=== PATIENT | female | born 1950 | race African-American/Black ===

== ENCOUNTER 2022-01-31 05:14 | Emergency (ER) | payer OTHER ==
--- NOTE | 2022-01-31 05:44 | ER ---
Nurse's Notes [facility] Name: Stephen Carter Age: 71 yrs Sex: Female : 1950 Arrival Date: 01/31/2022 Time: 05:17 Bed 8 Private MD: Diagnosis: Radiculopathy, lumbosacral region Presentation: 01/31 05:34 Chief complaint: Patient states: LOWER BACK PAIN RADIATING TO BILATERAL LOWER kl EXTREMITIES X 1 MONTH. Coronavirus screen: Vaccine status: Patient reports receiving the 2nd dose of the covid vaccine. Ebola Screen: Patient negative for fever greater than or equal to 101.5 degrees Fahrenheit, and additional compatible Ebola Virus Disease symptoms. Initial Sepsis Screen: Does the patient meet any 2 criteria? No. Patient's initial sepsis screen is negative. Does the patient have a suspected source of infection? No. Patient's initial sepsis screen is negative. Risk Assessment: Do you want to hurt yourself or someone else? Patient reports no desire to harm self or others. 05:34 Method Of Arrival: Ambulatory 05:34 Acuity: [place] 3 kl 05:40 Onset of symptoms was December 2021. kd3 Triage Assessment: 05:37 General: Appears in no apparent distress. well groomed, well developed, Behavior is kl calm, cooperative. Pain: Complains of pain in lumbar area Pain radiates to BILATERAL LOWER LEG. EENT: No deficits noted. Neuro: No deficits noted. Cardiovascular: No deficits noted. Respiratory: No deficits noted. GI: No deficits noted. No signs and/or symptoms were reported involving the gastrointestinal system. : No deficits noted. No signs and/or symptoms were reported regarding the genitourinary system. Derm: No deficits noted. No signs and/or symptoms reported regarding the dermatologic system. Musculoskeletal: Reports. Historical: - Allergies: 05:36 No Known Allergies; kl - Home Meds: 05:36 gabapentin oral [Active]; Januvia oral [Active]; Nifedipine Oral [Active]; kl - PMHx: 05:36 Hypertensive disorder; Diabetes mellitus; NEUROPATHY; kl - PSHx: 05:36 None; kl - Immunization history:: Adult Immunizations up to date. - Social history:: Smoking status: Patient denies any tobacco usage or history of. - Family history:: not pertinent. - Hospitalizations: : No recent hospitalization is reported. Screenin:38 [facility] ED Fall Risk Assessment (Adult) History of falling in the last 3 months, kd3 including since admission No falls in past 3 months (0 pts) Confusion or Disorientation No (0 pts) Intoxicated or Sedated No (0 pts) Impaired Gait No (0 pts) Mobility Assist Device Used No (0 pt) Altered Elimination No (0 pt) Score/Fall Risk Level 0 - 2 = Low Risk. Humpty Dumpty Scale Fall Assessment Tool (age< 18yrs) Age 13 years and above (1 pt) Gender Female (1 pt) Diagnosis Other diagnosis (1 pt) Cognitive Impairments Oriented to own ability (1 pt) Environmental Factors Patient placed in bed (2 pts) Response to Surgery/Sedation/Anesthesia More than 48 hours/None (1 pt) Medication Usage Other medications/ None (1 pt) Fall Risk Score/ Level Low Fall Risk: < 11 points. Abuse screen: Denies threats or abuse. Denies injuries from another. Nutritional screening: No deficits noted. Tuberculosis screening: No symptoms or risk factors identified. Fall Risk No fall in past 12 months (0 pts). No secondary diagnosis (0 pts). No IV (0 pts). Ambulatory Aid- None/Bed Rest/Nurse Assist (0 pts). Gait- Normal/Bed Rest/Wheelchair (0 pts) Mental Status- Oriented to own ability (0 pts). Total Leon Fall Scale indicates No Risk (0-24 pts). Assessment: 05:37 General: Appears in no apparent distress. Behavior is calm, cooperative. Pain: kd3 Complains of pain in right hamstring and posterior aspect of right knee Pain radiates to left hamstring and posterior aspect of left knee Quality of pain is described as sharp. Neuro: Level of Consciousness is awake, alert, obeys commands, Oriented to person, place, time, situation. Cardiovascular: Patient's skin is warm and dry. Respiratory: Airway is patent Trachea midline Respiratory effort is even, unlabored, Respiratory pattern is regular, symmetrical. GI: No deficits noted. : No deficits noted. Musculoskeletal: Circulation, motion, and sensation intact. Vital Signs: 05:34 BP 143 / 77; Pulse 83; Resp 16; Temp 98.1(TE); Pulse Ox 98% on R/A; Weight 94.8 kg (R); kl Height 5 ft. 3 in. (160.02 cm); Pain 6/10; 05:34 Body Mass Index 37.02 (94.80 kg, 160.02 cm) ED Course: 05:17 Patient arrived in ED. bp1 05:21 Malachi Roblero MD is Attending Physician. rn 05:29 Ivett Pino, RN is Primary Nurse. kd3 05:36 Triage completed. 05:38 Patient has correct armband on for positive identification. Bed in low position. Call kd3 light in reach. 05:38 No provider procedures requiring assistance completed. Patient did not have IV access kd3 during this emergency room visit. 05:40 Arm band placed on. kd3 Administered Medications: No medications were administered Medication: 05:38 VIS not applicable for this client. kd3 Outcome: 05:44 Discharge ordered by . rn 05:51 Discharged to home ambulatory. kd3 05:51 Condition: stable 05:51 Discharge instructions given to patient, Instructed on discharge instructions, follow up and referral plans. medication usage, Demonstrated understanding of instructions, follow-up care, medications, Prescriptions given X 3. 05:51 Patient left the ED. kd3 Signatures: Gala Velazquez RN RN Malachi Roblero MD MD rn [place], [facility] Ivett Pino, GILES SKAGGS kd3 Corrections: (The following items were deleted from the chart) 05:37 05:36 PSHx: [facility]; [facility]
--- NOTE | 2022-01-31 05:44 | EDPHYS ---
Physician Documentation [facility] Name: Stephen Carter Age: 71 yrs Sex: Female : 1950 Arrival Date: 01/31/2022 Time: 05:17 Bed 8 Private MD: ED Physician Malachi Roblero HPI: 01/31 05:37 This 71 yrs old Black Female presents to ER via Ambulatory with complaints of back rn pain, leg pain. 05:37 The patient presents with pain that is chronic, with no known mechanism of injury. The rn symptoms are located in the low back. Onset: The symptoms/episode began/occurred 2 month(s) ago. The pain radiates to the right leg and left leg. Associated signs and symptoms: Pertinent negatives: abdominal pain, chest pain, constipation, dysuria, fever, hematuria, incontinence, nausea, urinary retention, vomiting, weakness. Modifying factors: The patient symptoms are alleviated by rest, specific position, the patient symptoms are aggravated by any movement. Severity of symptoms: At their worst the symptoms were moderate, in the emergency department the symptoms have improved. The patient has experienced similar episodes in the past. The patient has not recently seen a physician. Pt reports 1-2 months of low back pain, radiates to both legs, stops at about level of knee posteriorly. No fever. NO weakness. No trauma. Has appt with pcp on feb 22 but didn't want to wait so came here this AM. No new or worsening symptoms. No abd pain. . Historical: - Allergies: 05:36 No Known Allergies; kl - Home Meds: 05:36 gabapentin oral [Active]; Januvia oral [Active]; Nifedipine Oral [Active]; kl - PMHx: 05:36 Hypertensive disorder; Diabetes mellitus; NEUROPATHY; kl - PSHx: 05:36 None; kl - Immunization history:: Adult Immunizations up to date. - Social history:: Smoking status: Patient denies any tobacco usage or history of. - Family history:: not pertinent. - Hospitalizations: : No recent hospitalization is reported. ROS: 05:37 Constitutional: Negative for fever, chills, and weight loss, Neck: Negative for injury, rn pain, and swelling, Cardiovascular: Negative for chest pain, palpitations, and edema, Respiratory: Negative for shortness of breath, cough, wheezing, and pleuritic chest pain, Abdomen/GI: Negative for abdominal pain, nausea, vomiting, diarrhea, and constipation, Back: + low back pain MS/Extremity: Negative for injury and deformity, Skin: Negative for injury, rash, and discoloration, Neuro: Negative for headache, weakness, and seizure. Exam: 05:37 Constitutional: This is a well developed, well nourished patient who is awake, alert, rn and in no acute distress. Ambulatory to room without difficulty or assistance. Back: No spinal tenderness Skin: Warm, dry with normal turgor. Normal color with no rashes, no lesions, and no evidence of cellulitis. MS/ Extremity: Pulses equal, no cyanosis. Neurovascular intact. Full, normal range of motion. Equal circumference. Neuro: Awake and alert, GCS 15, oriented to person, place, time, and situation. Motor strength 5/5 in all extremities. Sensory grossly intact. Cerebellar exam normal. Normal gait. Vital Signs: 05:34 BP 143 / 77; Pulse 83; Resp 16; Temp 98.1(TE); Pulse Ox 98% on R/A; Weight 94.8 kg (R); kl Height 5 ft. 3 in. (160.02 cm); Pain 6/10; 05:34 Body Mass Index 37.02 (94.80 kg, 160.02 cm) kl MDM: 05:21 Patient medically screened. rn 05:37 Differential diagnosis: arthritis, chronic back pain, Osteoarthritis radiculopathy. rn Data reviewed: vital signs, nurses notes, and as a result, I will discharge patient. Counseling: I had a detailed discussion with the patient and/or guardian regarding: the historical points, exam findings, and any diagnostic results supporting the discharge/admit diagnosis, the need for outpatient follow up, to return to the emergency department if symptoms worsen or persist or if there are any questions or concerns that arise at home. Special discussion: I discussed with the patient/guardian in detail that at this point there is no indication for admission to the hospital. It is understood, however, that if the symptoms persist or worsen the patient needs to return immediately for re-evaluation. Further emergent ED testing is not indicated at this point in time. I discussed with the patient/guardian in detail the need to arrange with the PCP or specialist further outpatient testing, MRI, Based on the history and exam findings, there is no indication for further emergent testing or inpatient evaluation. I discussed with the patient/guardian the need to see the back specialist for further evaluation of the symptoms. I discussed with the patient/guardian the need to see the primary care provider for further evaluation of the symptoms. ED course: Explained to patient that is most likely nerve pain from low back, pain present for 1-2 months, not worsening, discussed and recommended outpt MRI as not able to get one here tonight. WIll treat neuropathic pain and given return precautions. . Administered Medications: No medications were administered Disposition Summary: 01/31/22 05:44 Discharge Ordered Location: Home rn Problem: an ongoing problem rn Symptoms: have improved rn Condition: Stable rn Diagnosis - Radiculopathy, lumbosacral region rn Followup: rn - With: Private Physician - When: As needed - Reason: Recheck today's complaints, Re-evaluation by your physician Discharge Instructions: - Discharge Summary Sheet rn - Lumbosacral Radiculopathy rn - Neuropathic Pain rn - Pinched Nerve rn - Back Exercises rn Forms: - Medication Reconciliation Form rn - Thank You Letter rn - Antibiotic representative government relations - Prescription Opioid Use rn Prescriptions: - Ultram 50 mg Oral Tablet - take 1 tablet by ORAL route every 6 hours As needed; 12 tablet; Refills: 0, rn Product Selection Permitted - Cyclobenzaprine 10 mg Oral Tablet - take 1 tablet by ORAL route every 8 hours As needed; 12 tablet; Refills: 0, rn Product Selection Permitted - Medrol (Nick) 4 mg Oral Tablets, Dose Pack - take 1 tablet by ORAL route as directed - follow package instructions; 1 rn packet; Refills: 0, Product Selection Permitted Signatures: Gala Velazquez RN RN kl Nieto, Roman, MD MD commercial litigation attorney: (The following items were deleted from the chart) 05:37 05:36 PSHx: Appendectomy; [facility]
[2022-01-31 06:08] VITALS: BP 143/77; TEMP 98.1; O2SAT 98
== END 2022-01-31 05:51 | disposition home or self-care (01) ==
LOC: ER 05:14
DX: M54.17 Radiculopathy, lumbosacral region (principal)
CPT/HCPCS: 99282